=== PATIENT | female | born 1945 | race Two or more races ===

== ENCOUNTER 2024-09-14 18:02 | Emergency (ER) | payer OTHER, SELFPAY ==
[2024-09-14 19:05] VITALS: BP 182/79; PULSE 71; RESP 18; TEMP 37.1; O2SAT 97; BMI 27.1
--- NOTE | 2024-09-14 19:24 | PD.EDRME ---
Rapid Medical Screening Exam E Arrival date/time: 09/14/24 18:02 78F with history of HTN presents to ED with worsening dysuria and flank/back pain. Patient went to PCP and got Macrobid w/o relief. Vital signs: Vital Signs Temperature 98.8 F 09/14/24 19:05 Pulse Rate 71 09/14/24 19:05 Respiratory Rate 18 09/14/24 19:05 Blood Pressure 182/79 H 09/14/24 19:05 Pulse Oximetry (%) 97 09/14/24 19:05 Oxygen Delivery Method Room Air 09/14/24 19:05
[2024-09-14 20:08] LABS: Collection Type, Urine Clean Catch
[2024-09-14 20:17] LABS: Lactate (Lactic Acid) 0.6 mMol/L (0.4-2.0)
[2024-09-14 20:19] LABS: Basophils % (Auto) 1 % (0-2.5); Eosinophils # (Auto) 0.3 Thou/mm3 (0.0-0.5); Eosinophils % (Auto) 5 % (0-10); Hematocrit 39.7 % (36.0-46.0); Hemoglobin 12.9 g/dL (12.0-16.0); Immature Granulocytes % (Auto) 0 % (0-0); Immature Granulocytes Auto 0.02 Thou/mm3 (0.00-0.00); Lymphocytes # (Auto) 1.6 Thou/mm3 (1.0-4.8); Lymphocytes % (Auto) 24 % (10-50); Mean Corpuscular HGB Conc 32.5 g/dl (31.0-37.0); Mean Corpuscular Hemoglobin 28.2 pg (25.0-35.0); Mean Corpuscular Volume 87 fL (80-100); Monocytes # (Auto) 0.9 Thou/mm3 (0.0-0.8); Monocytes % (Auto) 13 % (0-12); Neutrophils # (Auto) 3.9 Thou/mm3 (1.8-7.7); Neutrophils % (Auto) 57 % (37-80); Nucleated Red Blood Cell % 0 /100 WBC (0); Platelet Count 225 Thou/mm3 (140-440); RDW Standard Deviation 48.2 fL (36.4-46.3); Red Blood Count 4.57 Miln/mm3 (4.00-5.20); White Blood Count 6.7 Thou/mm3 (3.6-11.0)
[2024-09-14 20:22] LABS: Bilirubin,Urine Negative (Negative); Blood,Urine Negative (Negative); Clarity,Urine Clear (Clear/Hazy); Color,Urine Colorless (Lt Yel-Yel); Culture Indicated,Urine Not Indicated; Glucose, Urine 3+ (Negative); Ketones,Urine Negative (Negative); Leukocyte Esterase,Urine Positive (Negative); Nitrite,Urine Negative (Negative); PH,Urine 5.5 (5.0-7.0); Protein,Urine Negative (Neg - Trace); RBC,Urine 1 /hpf (0-3); Specific Gravity,Urine 1.008 (1.001-1.035); Squamous Epithelial Cell,Urine < 1 /hpf (0-5); Urobilinogen,Urine Negative mg/dL (0.0-1.0); WBC,Urine 5 /hpf (0-5)
[2024-09-14 20:47] LABS: Alanine Aminotransferase 14 U/L (10-49); Albumin, Serum 4.3 gm/dL (3.4-4.8); Albumin/Globulin Ratio 1.6 (1.2-2.2); Alkaline Phosphatase 120 U/L (46-116); Anion Gap 8 (7-16); Aspartate Amino Transferase 23 U/L (0-34); BUN/Creatinine Ratio 24 Ratio (12-20); Bilirubin,Total 0.3 mg/dL (0.3-1.2); Blood Urea Nitrogen 36 mg/dL (9-23); Calcium 9.7 mg/dL (8.3-10.6); Calcium (Corrected) 9.7 mg/dL (8.5-10.1); Carbon Dioxide 27.3 mMol/L (20.0-31.0); Chloride 104 mMol/L (98-107); Creatinine (Component) 1.5 mg/dL (0.6-1.3); Estimated Creatinine Clearance 29.4 mL/min (>60); Globulin 2.7 gm/dL (2.3-3.5); Glucose 67 mg/dL (74-106); Osmolality,Calculated 283 (275-295); Potassium 4.8 mMol/L (3.4-5.1); Procalcitonin 0.05 ng/ml (0.0-0.49); Sodium 139 mMol/L (136-145); eGFR 36 See Note
[2024-09-14 23:05] VITALS: BP 160/68; PULSE 60; RESP 18; O2SAT 97
--- NOTE | 2024-09-15 01:00 | XR_ITS ---
Examination: CT abdomen and pelvis without contrast. Coronal 3-D reconstructions. Sagittal 2-D reconstructions. Date and time of exam:September 15, 2024 0153 hrs. Indications: Onset abdominal pain beginning one week ago CTDI: vol (mGy): 8.20 DLP: (mGycm): 412 Technique: Axial images of the abdomen have been obtained, 3 mm slice thickness Intravenous contrast material has not been administered. Low dose protocols were performed. One or more of the following dose reduction techniques were used; automated exposure control, adjustment of the mA and/or KV according to patient size, use of iterative reconstruction technique. Findings: Mild opacity both lung bases No focal liver lesions Absent gallbladder Spleen is not enlarged Retrocardiac gastric hernia No pancreatic mass Atrophic kidneys with minimal bilateral hydronephrosis Heavy abdominal aortic calcification no aneurysmal dilatation Large amounts of stool throughout the entire colon Atrophic uterus Urinary bladder intact Significant osteopenia Impression: Bibasilar pneumonia Large amounts of stool throughout the colon No obstruction
[2024-09-15 01:05] VITALS: BP 134/63; PULSE 58; RESP 18; TEMP 36.6; O2SAT 98
--- NOTE | 2024-09-15 01:13 | EDNOTE_ITS ---
ED General RME/HPI General Chief complaint: Back Pain/Injury Stated complaint: Lower back pain Arrival date/time: 09/14/24 18:02 Limitations: no limitations RME / HPI RME / HPI narrative: 09/14/24 18:02 78F with history of HTN presents to ED with worsening dysuria and flank/back pain. Patient went to PCP and got Macrobid w/o relief. -------- Dr. Castro's Main ED Evaluation: 78yo female with a history of HTN presents to the ED for a chief complaint of lower mid back pain x 5 days. Patient states she's had her back pain and dysuria for the last 5 days. She went to her PCP's office on Tuesday and was prescribed Macrobid for a UTI. She states her symptoms have been progressively getting worse despite taking her antibiotics, so she came in for evaluation. Denies any fever, chills, N/V or any other associated symptoms. No known allergies. Related Data Previous Rx's ?Medication ?Instructions ?Recorded meloxicam 15 mg tablet 15 mg PO QDAY #20 tabs 11/30 amoxicillin 875 mg-potassium 1 tab PO BID #20 tabs 05/30 clavulanate 125 mg tablet Allergies Allergy/AdvReac Type Severity Reaction Status Date / Time No Known Allergies Allergy Verified 09/14/24 18:06 Review of Systems Review of Systems Systems Reviewed: All systems reviewed, normal except as documented Past Medical History Past Medical History CARDIAC: Negative Congestive Heart Failure RESPIRATORY: Negative Chronic Obstructive Pulmonary Disease (COPD) GENITOURINARY: Negative Renal Disease REPRODUCTIVE: Positive Previous Pregnancies MUSCULOSKELETAL: Positive Arthritis ENDOCRINE: Positive Diabetes Mellitus Type 2; Negative Diabetes Mellitus Type 1 HEMATOLOGIC: Positive Anemia OTHER HISTORY: Negative Cancer Surgical History SURGICAL: Positive Tubal Ligation; Negative Cardiac Surgery Social History SMOKING STATUS: Never smoker ED Exam General Limitations: Present no limitations General appearance: Present alert and in no apparent distress Head Head exam: Present atraumatic Eye Eye exam: Present normal appearance, PERRL and EOMI ENT ENT exam: Present normal exam, normal oropharynx and mucous membranes moist Neck Neck exam: Present normal inspection, full ROM and trachea midline Chest Chest inspection: Present normal inspection and symmetric chest wall rise Respiratory Respiratory exam: Present normal lung sounds bilaterally Cardiovascular Cardiovascular exam: Present regular rate, normal rhythm and normal heart sounds Abdominal Exam Abdominal exam: Present soft and normal bowel sounds Extremities Exam Extremities exam: Present normal inspection and full ROM Back Exam Back exam: Present normal inspection and full ROM Neurological Exam Neurological exam: Present alert, oriented X3 and CN II-XII intact Psychiatric Psychiatric exam: Present normal affect and normal mood Skin Skin exam: Present warm, dry, intact and normal color Course Quality Measures none Orders Category Date Time Status CT abdomen pelvis wo con Stat Exams 09/15/24 01:00 Completed CBC Stat Lab 09/14/24 20:11 Completed CMP [Comprehensive Metabolic Panel] Stat Lab 09/14/24 20:11 Completed Lactate (Lactic Acid) Stat Lab 09/14/24 20:11 Completed Procalcitonin Stat Lab 09/14/24 20:11 Completed Urinalysis, C/S if Indicated Stat Lab 09/14/24 20:00 Completed Acetaminophen Tab [Tylenol Tab] Med 09/15/24 03:50 Discontinued 650 mg PO X1 ONE Azithromycin Inj [Zithromax Inj] 500 mg Med 09/16/24 09:00 Pending Sodium Chloride 0.9% 250 ml [Ns] 250 ml IV QDAY Azithromycin Inj [Zithromax Inj] 500 mg Med 09/15/24 04:00 Discontinued Sodium Chloride 0.9% 250 ml [Ns] 250 ml IV X1 cefTRIAXone/D5w 1gm IV premix [Rocephin/D5w 1gm IV Med 09/15/24 03:47 Discontinued premix] 1 gm in 50 ml IV X1 Vital Signs Vital signs: Vital Signs Temperature 98.8 F 09/14/24 19:05 Pulse Rate 71 09/14/24 19:05 Respiratory Rate 18 09/14/24 19:05 Blood Pressure 182/79 H 09/14/24 19:05 Pulse Oximetry (%) 97 09/14/24 19:05 Oxygen Delivery Method Room Air 09/14/24 19:05 [facility] Patient data External records reviewed:: [facility] previous records (Per chart review, patient was seen here on 12/01/23 for degenerative arthritis of left shoulder region.) Clinical information provided by:: patient Social determinants that could affect healthcare access:: none Patient has the following chronic illnesses:: DM How is presenting disease/condition affected by chronic disease/condition?: u neffected by Evaluation data The following diagnostics were reviewed and interpreted by me:: lab results and radiology exam(s) Lab and/or radiology exams considered but not ordered:: none Interpretation Summary: CBC is normal, Creatinins is 1.5, BUN is 36, Glucose is 67, Lactic Acid is normal, Procalcitonin is normal, UA is unremarkable, according to my interpretation. Telerad Preliminary Report Draft Patient: MURALI ESCAMILLA. Record#: [id number] Birthdate: 1945 Age/Sex: 78 / F Location: [facility] Attending Dr: Ordering Physician: Date of Service: Procedure(s): Accession Number(s): cc: ~ CT scan of the abdomen and pelvis without intravenous contrast (axial sections with sagittal and coronal reformats) September 15, 2024 at 0153 hours Clinical History: 1 day history of flank pain. Comparison: None. Findings: Small consolidation in the right lower lobe. Small consolidation in the left lower lobe. The pancreas, spleen, kidneys and adrenals are unremarkable on this noncontrast study. S/p cholecystectomy. Mild irregular liver margins. No evidence of bowel obstruction. No evidence of appendicitis. There is no mesenteric or retroperitoneal adenopathy. The urinary bladder is unremarkable. There is no free fluid or free air. Degenerative changes of the imaged portions of the spine. Chronic multilevel disc disease. No acute fractures. Coronary arteries calcifications. Dilated left atrium. Large hiatus hernia. Fecal loading. Vascular calcifications. The uterus and ovaries are within normal limits. Impression: 1. Left lower lobe consolidation, suspicious for pneumonia. 2. Fecal loading. 3. Small consolidation in the right lower lobe, suspicious for pneumonia. 4. Dilated left atrium. 5. Large hiatus hernia. 6. Possible cirrhosis. Report Electronically Signed By: Alan Melgar 09/15/2024 3:18:09 AM Medications Medications considered but not ordered:: none Medication administrations:: Medication Administration History Azithromycin 500 mg/ Sodium (Chloride) 250 mls @ 250 mls/hr IV QDAY JAVY Stop: 09/22/24 03:47 Discontinued Medications Acetaminophen (Acetaminophen 325 Mg Tablet) 650 mg PO X1 ONE Stop: 09/15/24 03:51 Last Admin: 09/15/24 04:07 Dose: 650 mg Documented By: Ceftriaxone Sodium/Dextrose (Rocephin/D5w 1gm Iv Premix) 1 gm in 50 mls @ 100 mls/hr IV X1 ONE Stop: 09/15/24 04:16 Last Infusion: 09/15/24 04:40 Dose: Infused Documented By: Admin: 09/15/24 04:09 Dose: 100 mls/hr Documented By: Azithromycin 500 mg/ Sodium (Chloride) 250 mls @ 250 mls/hr IV X1 ONE Stop: 09/15/24 04:59 Last Infusion: 09/15/24 05:48 Dose: Infused Documented By: Admin: 09/15/24 04:33 Dose: 250 mls/hr Documented By: see above Consultations Consultation(s) initiated? (list below): No Diagnosis Differential Diagnosis ED Complaint MDM: pneumonia, kidney stone, UTI Most likely diagnosis given after review of the tests above:: see clinical impression below Admission Indicated Admission indicated?: not indicated Explain why admission is indicated or not indicated:: No criteria for admission. Admission Request Was there a request for admission?: No Disposition Plan Disposition Plan: Discharge Discharge Attestation Discharge Attestation: The patient and all family members were given an opportunity to ask questions and understood the discharge instructions. Discharge instructions specifically effects, indications for sooner follow up or return to the emergency department, and the expected course of current diagnosis. Patient condition: Stable Medical Decision Making MDM Narrative MDM Narrative: Scribe Attestation: 09/15/24 - Savannah Vang am scribing for and in the presence of Dr. Castro. Differential Diagnosis Differential Diagnosis: pneumonia, kidney stone, UTI Lab Data 09/14/24 20:11 09/14/24 20:11 Labs: Lab Results 09/14/24 09/14/24 Range/Units 20:00 20:11 WBC 6.7 (3.6-11.0) Thou/mm3 RBC 4.57 (4.00-5.20) Miln/mm3 Hgb 12.9 (12.0-16.0) g/dL Hct 39.7 (36.0-46.0) % MCV 87 (80-100) fL MCH 28.2 (25.0-35.0) pg MCHC 32.5 (31.0-37.0) g/dl RDW Std Deviation 48.2 H (36.4-46.3) fL Plt Count 225 (140-440) Thou/mm3 Neut % (Auto) 57 (37-80) % Lymph % (Auto) 24 (10-50) % [place] % (Auto) 13 H (0-12) % Eos % (Auto) 5 (0-10) % Baso % (Auto) 1 (0-2.5) % Neut # (Auto) 3.9 (1.8-7.7) Thou/mm3 Lymph # (Auto) 1.6 (1.0-4.8) Thou/mm3 [place] # (Auto) 0.9 H (0.0-0.8) Thou/mm3 Eos # (Auto) 0.3 (0.0-0.5) Thou/mm3 Baso # (Auto) 0.0 (0.0-0.2) Thou/mm3 Immature Gran # (Auto) 0.02 H (0.00-0.00) Thou/mm3 Absolute Nucleated RBC 0.00 (0.00-0.00) Thou/mm3 Immature Gran % 0 (0-0) % Nucleated RBC % 0 (0) /100 WBC Sodium 139 (136-145) mMol/L Potassium 4.8 (3.4-5.1) mMol/L Chloride 104 (98-107) mMol/L Carbon Dioxide 27.3 (20.0-31.0) mMol/L Anion Gap 8 (7-16) BUN 36 H (9-23) mg/dL Creatinine 1.5 H (0.6-1.3) mg/dL Estim Creat Clear Calc 29.4 L (>60) mL/min eGFR 36 L (60 - ) See Note BUN/Creatinine Ratio 24 H (12-20) Ratio Glucose 67 L (74-106) mg/dL Calculated Osmolality 283 (275-295) Lactic Acid 0.6 (0.4-2.0) mMol/L Calcium 9.7 (8.3-10.6) mg/dL Corrected Calcium 9.7 (8.5-10.1) mg/dL Total Bilirubin 0.3 (0.3-1.2) mg/dL AST 23 (0-34) U/L ALT 14 (10-49) U/L Alkaline Phosphatase 120 H (46-116) U/L Total Protein 7.0 (5.7-8.2) gm/dL Albumin 4.3 (3.4-4.8) gm/dL Globulin 2.7 (2.3-3.5) gm/dL Albumin/Globulin Ratio 1.6 (1.2-2.2) Procalcitonin 0.05 (0.0-0.49) ng/ml Ur Collection Type Clean Catch Urine Color Colorless A (Lt Yel-Yel) Urine Clarity Clear (Clear/Hazy) Urine pH 5.5 (5.0-7.0) Ur Specific [place] 1.008 (1.001-1.035) Urine Protein Negative (Neg - Trace) Urine Glucose (UA) 3+ A (Negative) Urine Ketones Negative (Negative) Urine Blood Negative (Negative) Urine Nitrite Negative (Negative) Urine Bilirubin Negative (Negative) Urine Urobilinogen (Auto) Negative (0.0-1.0) mg/dL Ur Leukocyte Esterase Positive (Negative) Urine RBC 1 (0-3) /hpf Urine WBC 5 (0-5) /hpf Ur Squamous Epith Cells < 1 (0-5) /hpf Urine Bacteria None (None) Ur Culture Indicated? Not Indicated Discharge Plan Plan Patient Disposition: HOME (Self Care) Patient condition on transfer: Stable Prescriptions/Referrals Prescriptions/Med Rec: New amoxicillin-pot clavulanate 875-125 mg tablet 1 tab PO BID Qty: 20 0RF No Action meloxicam 15 mg tablet 15 mg PO QDAY Qty: 20 0RF Referrals: Gloria Conley FNP [Primary Care Provider] - 09/18/24 Problem List Clinical Impression: Community acquired pneumonia Patient/Caregiver Discharge Instructions Education Materials: ED Pneumonia (Adult) Additional Instructions: General Adult Discharge Instructions(Sammarinese) Usted marcelo sido dado de unique del Departamento de Emergencias sin embargo hay algunas cosas que debe hacer para asegurarse de que usted continue recibiendo el cuidado adecuado. Por favor bud las siguientes instrucciones con atenci?n: ? 1. Si es que le dieron alguna prescripci?n (medicamento), asegurese de ir a la farmacia de russ preferencia, llenar el medicamento y tomarlo conforme a las instrucciones. ? 2. Leas las instrucciones de unique con mucho cuidado dado que contienen informaci?n importante para russ gianluca y cuidado. 3. REGRESE AL DEPARTAMENTO DE EMERGENCIA SI tiene alg?n tipo de problema o preocupaci?n. Carmichaels incluye lenin no esta limitado a fiebre, mucho dolor abdominal, dolor de pecho, mucho dolor de obey, falta de aire, sangrado incontrolable, nauseas o vomitos incontrolables, inhabilidad de tolerar alimentos, o cualquier otro tipo de condici?n que le nerissa cuestionar russ gianluca. 4. Asegurese de seguir con russ medico primario (tambien llamado medico de katharine) o con el medico especialista que le indicaron al momento del unique en 3 a 5 das dado que esta es la mejor manera de asegurar que dell recibiendo el mejor cuidado medico. ? 5. Si es que tiene un telefono inteligente (smartphone) revise la pagina web o aplicaci?n GoodRx antes de pagar por tuan prescripciones (medicinas) dado que asi podr?a encontrar un cup?n para que tuan medicinas sarah menos costosas. El servicio es gratuito. ? Le agradecemos russ visita el екатерина de [place] y esperamos que russ gianluca mejore. Print Language: Sammarinese Stand Alone Forms: Sonia Award Info., Patient Portal Info Letter
--- NOTE | 2024-09-15 03:18 | PRELIM_ITS ---
CT scan of the abdomen and pelvis without intravenous contrast (axial sections with sagittal and coronal reformats) September 15, 2024 at 0153 hours Clinical History: 1 day history of flank pain. Comparison: None. Findings: Small consolidation in the right lower lobe. Small consolidation in the left lower lobe. The pancreas, spleen, kidneys and adrenals are unremarkable on this noncontrast study. S/p cholecystectomy. Mild irregular liver margins. No evidence of bowel obstruction. No evidence of appendicitis. There is no mesenteric or retroperitoneal adenopathy. The urinary bladder is unremarkable. There is no free fluid or free air. Degenerative changes of the imaged portions of the spine. Chronic multilevel disc disease. No acute fractures. Coronary arteries calcifications. Dilated left atrium. Large hiatus hernia. Fecal loading. Vascular calcifications. The uterus and ovaries are within normal limits. Impression: 1. Left lower lobe consolidation, suspicious for pneumonia. 2. Fecal loading. 3. Small consolidation in the right lower lobe, suspicious for pneumonia. 4. Dilated left atrium. 5. Large hiatus hernia. 6. Possible cirrhosis. Report Electronically Signed By: Alan Melgar 09/15/2024 3:18:09 AM [EST]
[2024-09-15 03:39] VITALS: BP 139/60; PULSE 56; RESP 16; O2SAT 95
[2024-09-15] MEDS: ACETAMINOPHEN 325 MG TABLET 650 MG PO (04:07)
[2024-09-15] MEDS: cefTRIAXone/D5w 1gm IV premix 1 GM/50 ML BAG IV (04:09)
[2024-09-15] MEDS: AZITHROMYCIN INJ 500 MG in SODIUM CHLORIDE 0.9% 250 ML 250 ML 250 MG IV (04:33)
[2024-09-15 05:00] VITALS: BP 147/67; PULSE 58; RESP 18; O2SAT 97
[2024-09-15 06:16] VITALS: BP 129/64; PULSE 56; RESP 18; TEMP 36.6; O2SAT 98
== END 2024-09-15 06:34 | disposition home or self-care (01) ==
PROVIDERS: Physician Assistant; Emergency Provider Emergency Medicine; PCP Nurse Practitioner Family
DX: J18.9 Pneumonia, unspecified organism (principal)
CPT/HCPCS: 36415; 74176; 80053; 81001; 83605; 84145; 85025; 96365; 99284; J0456; J0696; J7050; A9270

== ENCOUNTER 2024-10-14 10:26 | Emergency (ER) | payer OTHER, SELFPAY ==
[2024-10-14 10:37] VITALS: BP 147/66; PULSE 85; RESP 17; TEMP 36.7; O2SAT 98
[2024-10-14 10:38] VITALS: BMI 27.1
--- NOTE | 2024-10-14 11:01 | PD.EDUPEX ---
Upper Extremity Injury RME/HPI General Chief Complaint: Extremity Injury, Upper Stated Complaint: FELL 2 WKS AGO, SWOLLEN AREA L) FOREARM Time Seen by Provider: 10/14/24 10:37 Source: patient Arrival date/time: 10/14/24 10:26 78-year-old female with no known medical history presents to the emergency room with a chief complaint of a swollen area to her left forearm. Patient states she had a ground-level fall 2 weeks ago. Mode of arrival: ambulatory Limitations: no limitations Related Data Previous Rx's ?Medication ?Instructions ?Recorded meloxicam 15 mg tablet 15 mg PO QDAY #20 tabs 12/01/23 amoxicillin 875 mg-potassium 1 tab PO BID #20 tabs 09/15/24 clavulanate 125 mg tablet sulfamethoxazole 800 1 tab PO BID #14 tabs 10/14/24 mg-trimethoprim 160 mg tablet (Bactrim DS) Allergies Allergy/AdvReac Type Severity Reaction Status Date / Time No Known Allergies Allergy Verified 10/14/24 10:32 Review of Systems Review of Systems Systems Reviewed: All systems reviewed, normal except as documented Constitutional Constitutional: Reports system reviewed and no additional complaints, except as documented, Denies fatigue, Denies fever(s), Denies headache(s) and Denies weakness Eyes Eyes: Reports system reviewed and no additional complaints, except as documented, Denies blurry vision and Denies change in vision ENT Ears, Nose, Mouth, and Throat: Reports system reviewed and no additional complaints, except as documented, Denies otalgia, Denies headache(s), Denies nasal congestion, Denies throat swelling and Denies vertigo Cardiovascular Cardiovascular: Reports system reviewed and no additional complaints, except as documented, Denies chest pain, Denies dyspnea and Denies dyspnea on exertion Respiratory Respiratory: Reports system reviewed and no additional complaints, except as documented, Denies chest congestion, Denies cough, Denies dyspnea, Denies dyspnea on exertion and Denies wheezing Gastrointestinal Gastrointestinal: Reports system reviewed and no additional complaints, except as documented, Denies abdominal pain, Denies cramping, Denies nausea and Denies vomiting Genitourinary Genitourinary: Reports system reviewed and no additional complaints, except as documented Musculoskeletal Musculoskeletal: Reports system reviewed and no additional complaints, except as documented, Reports arthralgias, Denies back pain and Reports joint swelling Integumentary/Breasts Skin/Breast: Reports system reviewed and no additional complaints, except as documented and Denies wounds Neurologic Neurologic: Reports system reviewed and no additional complaints, except as documented, Denies confusion, Denies headache(s), Denies lack of coordination, Denies vertigo and Denies weakness Psychiatric Psychiatric: Reports system reviewed and no additional complaints, except as documented, Denies anxiety, Denies confusion, Denies depression, Denies paranoia, Denies suicidal ideation and Denies tactile hallucinations Endocrine Endocrine: Reports system reviewed and no additional complaints, except as documented and Denies fatigue Hematologic/Lymphatic Hematologic/Lymphatic: Reports system reviewed and no additional complaints, except as documented and Denies lymphadenopathy Allergic/Immunologic Allergic/Immunologic: Reports system reviewed and no additional complaints, except as documented, Denies throat swelling, Denies urticaria and Denies wheezing Past Medical History Past Medical History CARDIAC: Negative Congestive Heart Failure RESPIRATORY: Negative Chronic Obstructive Pulmonary Disease (COPD) GENITOURINARY: Negative Renal Disease REPRODUCTIVE: Positive Previous Pregnancies MUSCULOSKELETAL: Positive Arthritis ENDOCRINE: Positive Diabetes Mellitus Type 2; Negative Diabetes Mellitus Type 1 HEMATOLOGIC: Positive Anemia OTHER HISTORY: Negative Cancer Surgical History SURGICAL: Positive Tubal Ligation; Negative Cardiac Surgery Social History SMOKING STATUS: Never smoker ED Exam General Limitations: Present no limitations General appearance: Present alert and in no apparent distress Head Head exam: Present atraumatic Eye Eye exam: Present normal appearance, PERRL and EOMI ENT ENT exam: Present normal exam, normal oropharynx and mucous membranes moist Neck Neck exam: Present normal inspection, full ROM and trachea midline Chest Chest inspection: Present normal inspection and symmetric chest wall rise Respiratory Respiratory exam: Present normal lung sounds bilaterally Cardiovascular Cardiovascular exam: Present regular rate, normal rhythm and normal heart sounds Abdominal Exam Abdominal exam: Present soft and normal bowel sounds Extremities Exam Extremities exam: Present normal inspection and full ROM Expanded Upper Extremity Exam Shoulder exam: Present normal inspection Arm exam: Present normal inspection Elbow exam: Present normal inspection Forearm/Wrist exam: Present full ROM, tenderness, swelling and erythema; Absent deformity or crepitus Vascular exam: Normal capillary refill Back Exam Back exam: Present normal inspection and full ROM Neurological Exam Neurological exam: Present alert, oriented X3 and CN II-XII intact Psychiatric Psychiatric exam: Present normal affect and normal mood Skin Skin exam: Present warm, dry, intact and normal color Course Quality Measures none Orders Category Date Time Status Set Up Suture Tray STAT Care 10/14/24 10:45 Active Wound Care NOW Care 10/14/24 10:45 Active Lidocaine 1% 20 ml [Xylocaine 1% 20 ML] Med 10/14/24 10:45 Discontinued 20 ml INFL X1 ONE TET,DIP/PERT AC (Adult)-Tdap [Boostrix Adult (Tdap) Med 10/14/24 10:45 Discontinued Vacc] 0.5 ml IMI .ONCE ONE Vital Signs Vital signs: Vital Signs Temperature 98.0 F 10/14/24 10:37 Pulse Rate 85 10/14/24 10:37 Respiratory Rate 17 10/14/24 10:37 Blood Pressure 147/66 H 10/14/24 10:37 Pulse Oximetry (%) 98 10/14/24 10:37 O2 saturation 98% within normal limits Procedures -ED Abscess I/D Site: upper extremity Side (if applicable): left Local Anesthetic: lidocaine 1% Amount of anesthesia used (mL): 4 Technique: incised with #11 blade Amount of fluid expressed (mL): 6 Irrigation: Yes Packing used?: iodoform Extremity Injury MDM Narrative MDM Narrative:: 78-year-old female with no known medical history presents to the emergency room with a chief complaint of a swollen area to her left forearm. Patient states she had a ground-level fall 2 weeks ago. Patient is hemodynamically stable and in no apparent distress. Physical examination shows an erythemic, tender area to her left forearm. Patient states she has had imaging done by her primary care provider who told her there is no fracture. The findings are consistent with an abscess to the area. PROCEDURE: incision and drainage of abscess. PROCEDURE: A timeout protocol was performed prior to initiating the procedure. The area was prepared with Betadine and draped in the usual, sterile manner. The site was anesthetized with 1% lidocaine. A linear incision along the local skin lines was made and the purulent material expressed. The abscess was explored thoroughly and sequestered pockets were opened. Bleeding was minimal. Packing: Quarter inch iodoform Followup: The patient tolerated the procedure well without complications. Standard post-procedure care is explained and patient was educated to follow-up with his primary care provider in the next 24 to 48 hours or return to the emergency room for any evidence of worsening signs or symptoms. Patient data External records reviewed:: [facility] previous records Clinical information provided by:: patient Social determinants that could affect healthcare access:: none Patient has the following chronic illnesses:: Type 2 diabetes How is presenting disease/condition affected by chronic disease/condition?: uneffected by Evaluation data The following diagnostics were reviewed and interpreted by me:: lab results and radiology exam(s) Lab and/or radiology exams considered but not ordered:: Labs and radiology exams considered and ordered Interpretation Summary: N/A Medications / Prescriptions Medications or Prescriptions considered but not ordered:: Medication given Medication administrations:: Medication Administration History Discontinued Medications Diphtheria/Tetanus/Acell Pertussis (Diphth,Pertuss(Acell),Tet Vac 0.5 Ml Syr- Adult) 0.5 ml IMi .ONCE ONE Stop: 10/14/24 10:46 Lidocaine HCl (Lidocaine Hcl 1% 20 Ml Vial) 20 ml INFL X1 ONE Stop: 10/14/24 10:46 Medication given Consultations Consultation(s) initiated? (list below): No Diagnosis Upper Extremity Injury Differential Diagnosis: other (Cellulitis/subcutaneous abscess/) Most likely diagnosis given after review of the tests above:: Subcutaneous abscess Admission Indicated Admission indicated?: not indicated Admission Request Was there a request for admission?: No Disposition Plan Disposition Plan: Discharge Discharge Attestation Discharge Attestation: The patient and all family members were given an opportunity to ask questions and understood the discharge instructions. Discharge instructions specifically effects, indications for sooner follow up or return to the emergency department, and the expected course of current diagnosis. Patient condition: Stable Discharge Plan Plan Patient Disposition: HOME (Self Care) Discharge Disposition comment: Stable Prescriptions/Referrals Prescriptions/Med Rec: New sulfamethoxazole-trimethoprim [Bactrim DS] 800-160 mg tablet 1 tab PO BID Qty: 14 0RF No Action meloxicam 15 mg tablet 15 mg PO QDAY Qty: 20 0RF amoxicillin-pot clavulanate 875-125 mg tablet 1 tab PO BID Qty: 20 0RF Problem List Clinical Impression: Cellulitis, Encounter for incision and drainage procedure Patient/Caregiver Discharge Instructions Education Materials: Discharge Instructions for Cellulitis, ED Cellulitis Additional Instructions: Por favor, consulte con russ m?dico de cabecera en las pr?ximas 24 a 48 horas. Los antibi?ticos se env?an a russ farmacia; rec?jalos y t?melos seg?n lo indicado. Ante cualquier signo de empeoramiento de los signos o s?ntomas, acuda inmediatamente a urgencias. Print Language: Lithuanian Stand Alone Forms: Sonia Award Info., Patient Portal Info Letter PA/PUGGER HELPER Supervising Physician PA/PUGGER HELPER Supervising Physician: Dr. Goldman
--- NOTE | 2024-10-14 11:20 | PC.NURSE ---
CALLED AND SPOKE W/ PT'S DAUGHTER LUKAS. ASKED HER TO BRING PT BACK FOR TETANUS INJECTION. SHE SAID THEY WILL COME BACK.
[2024-10-14] MEDS: LIDOCAINE HCL 1% 20 ML VIAL INFL (11:52)
[2024-10-14] MEDS: DIPHTH,PERTUSS(ACELL),TET VAC 0.5 ML SYR- ADULT IMi (11:53)
== END 2024-10-14 12:10 | disposition home or self-care (01) ==
LOC: SERX 11:10
PROVIDERS: Emergency Provider Family Medicine; PCP Obstetrics & Gynecology
DX: L03.114 Cellulitis of left upper limb (principal); Z23 Encounter for immunization
CPT/HCPCS: 10060; 90471; 90715; 99283; J3490